=== PATIENT | female | born 1990 | race Caucasian/White ===

== ENCOUNTER 2019-06-07 16:03 | Emergency (ER) | payer OTHER ==
[2019-06-07 16:16] VITALS: TEMP 98.4
[2019-06-07] MEDS ORDERED: SODIUM CHLORIDE 0.9% 1000ML 1,000 ML IVS ONE (16:25)
[2019-06-07] MEDS ORDERED: ACETAMINOPHEN 500 MG TAB PO ONE (16:25)
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
[2019-06-07] MEDS ORDERED: TETANUS,DIPHTHERIA,PERTUSSIS 1 EA SYG IM ONE (16:44)
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
--- NOTE | 2019-06-07 17:38 | CT ---
EXAM DESCRIPTION: Head CLINICAL HISTORY: trauma COMPARISON: None available TECHNIQUE: Noncontrast head CT was performed with routine protocol. FINDINGS: Normal guerrero-white matter differentiation. Ventricles and sulci are normal for age. No high density hemorrhage, focal edema or shift of the midline. No sulcal effacement. Normal orbital contents. Basilar cisterns appear clear. Intact calvarium with no fracture or lytic lesion. Normal aeration of tympanic cavities and mastoid air cells. Mucosal thickening and fluid in the maxillary sinuses and right sphenoid sinus consistent with acute or chronic sinusitis. Skull base appears intact. Symmetrical internal auditory canals. IMPRESSION: No acute intracranial pathologic process. Paranasal sinusitis. This exam was performed according to our departmental dose-optimization program, which includes automated exposure control, adjustment of the mA and/or kV according to patient size and/or use of iterative reconstruction technique. Total DLP equals 859.97 mGycm. Electronically signed by: Guero Fleming MD 06/07/2019 5:36 PM CDT
--- NOTE | 2019-06-07 17:41 | CT ---
EXAM DESCRIPTION: Cervical Spine CLINICAL HISTORY: trauma COMPARISON: None Available. TECHNIQUE: Cervical CT is performed with thin-section axial imaging. MPRs are created and reviewed as well. FINDINGS: Axial bone window images reveal intact ring of C1. No abnormal widening of the atlantodens interval. No fracture of the vertebral bodies or transverse processes or posterior elements. Lung apices appear clear. No cervical mass or adenopathy. Sagittal reformatted images show mild reversal of the normal cervical lordosis. Otherwise normal alignment of vertebral bodies and facets. No jumped facet or facet fracture. Normal craniocervical alignment. No prevertebral soft tissue swelling. No a avulsion of the spinous processes. Spondylosis:None. Coronal reformatted images show normal atlantooccipital and atlantoaxial alignment. The base of the dens is intact as is the body of C2. Intact lateral masses. IMPRESSION: Negative for fracture or posttraumatic subluxation. This exam was performed according to our departmental dose-optimization program, which includes automated exposure control, adjustment of the mA and/or kV according to patient size and/or use of iterative reconstruction technique. Total DLP equals 441 mGycm. Electronically signed by: Guero Fleming MD 06/07/2019 5:40 PM CDT
--- NOTE | 2019-06-07 17:42 | RAD ---
EXAM DESCRIPTION: Foot,Right 3 Views CLINICAL HISTORY: trauma COMPARISON: None. TECHNIQUE: 3 views right FINDINGS: A plantar calcaneal spur ls observed. Mild intertarsal arthritis is seen. No fracturing is detected. IMPRESSION: Mild degenerative changes are observed. No fracturing is detected. Electronically signed by: Rebel Stockton MD 06/07/2019 5:40 PM CDT
--- NOTE | 2019-06-07 17:45 | RAD ---
EXAM DESCRIPTION: Hand,Right 3 Views CLINICAL HISTORY: trauma COMPARISON: None. TECHNIQUE: 3 views right FINDINGS: I see no bone joint or soft tissue abnormality. IMPRESSION: Normal right hand. Electronically signed by: Rebel Stockton MD 06/07/2019 5:43 PM CDT
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
[2019-06-07 18:38] VITALS: BP 136/82; O2SAT 99
== END 2019-06-07 18:40 | disposition home or self-care (01) ==
LOC: ER 16:03
DX: M79.641 Pain in right hand (principal); M79.604 Pain in right leg; S60.511A Abrasion of right hand, initial encounter; N39.0 Urinary tract infection, site not specified; V49.9XXA Car occupant (driver) (passenger) injured in unspecified traffic accident, initial encounter; Y92.410 Unspecified street and highway as the place of occurrence of the external cause